=== PATIENT | male | born 1980 | race Caucasian/White ===

== ENCOUNTER 2016-08-28 01:00 | Inpatient (IN) | payer OTHER ==
--- NOTE | ~2016-08-28 | PN ---
Unit #: [id number] #: [id number] Patient: TIARA BEREGRON [id number] [facility] [address] [place] [address] [id number] I MR#: [id number] NAME: TIARA BERGERON ROOM: P171 Age: 35 Sex: M Admission Date: 08/28/2016 : 1980 Attending Physician: Kiel Freedman M.D. Admitting Physician: Kiel Freedman M.D. Primary Care Physician: Primary Care Physician Kim AYERS PROGRESS NOTES DATE 08/30/2016 DISCUSSION The patient is a bit less seclusive to room and seems a tad brighter today though he continues to endorse hopelessness and suicidal ideation. We continue current treatment and the patient is encouraged to continue his increased participation within the therapeutic milieu. Suicide precautions remain in place. Dictated by... Kiel Freedman M.D. CB/obey TD: 08/30/2016 15:30 JOB #: [id number] [facility] PROGRESS NOTES Page 1 of 1 X Kiel Freedman MD PROGRESS NOTE
--- NOTE | ~2016-08-28 | PA ---
Unit #: [id number] #: [id number] Patient: TIARA BERGERON [id number] [place] [address] [id number] MR#: [id number] NAME: TIARA BERGERON ROOM: P171 Age: 35 Sex: M Admission Date: 08/28/2016 : 1980 Date of Assessment: 08/28/2016 Attending Physician: Kiel Freedman M.D. Admitting Physician: Kiel Freedman M.D. Primary Care Physician: Primary Care Physician No PSYCHIATRIC ASSESSMENT IDENTIFYING INFORMATION The patient is a 35-year-old white male admitted to the [address] [place] [address] unit after presenting to this facility voicing positive suicidal or homicidal ideation. CHIEF COMPLAINT None give. INFORMANT Chart, patient could not be aroused for interview. HISTORY OF PRESENT ILLNESS The patient is a 35-year-old white male well-known to this physician. He was last discharged from this facility in November of 2015. The patient has a history of methamphetamine abuse as well as Intermittent explosive disorder, antisocial personality disorder. He states that he has been compliant with his prescribed psychotropic medications which include Zoloft, Seroquel, Depakote and lisinopril. The patient reports that he found his girlfriend having sex with another man recently and this has caused increasing abuse of methamphetamine. The patient has not filled his medications of Seroquel, Zoloft and Depakote since March. The patient is sleeping soundly. Interviews attempted today having received a p.r.n. dose of Thorazine shortly after admission to the unit. PAST PSYCHIATRIC HISTORY Reviewed no changes. PAST MEDICAL HISTORY Reviewed no changes. MEDICATIONS 1. Zoloft 2. Seroquel 3. Depakote 4. Lisinopril ALLERGIES Codeine FAMILY HISTORY Reviewed no changes. Unit #: [id number] #: [id number] Patient: TIARA BERGERON SOCIAL HISTORY Reviewed no changes. MEDICATION HISTORY At this time reveals the patient to be soundly sleeping male appearing his stated age. She is in no apparent physical distress at the time of examination. He is awake, alert, oriented in all spheres. His mood and affect cannot be assessed secondary to his somnolence. ASSETES AND LIABILITIES ASSETS: to be assessed. LIABILITIES: Sociopathy. DIAGNOSTIC IMPRESSION Methamphetamine use disorder. Mood disorder unspecified. Hypertension. TREATMENT PLAN The patient remains hospitalized for safety and stabilization. We will restart previous prescribed medications and consider addition of mood stabilization medications such as Tegretol given the patient's history of intermittent explosive disorder. ESTIMATED LENGTH OF STAY Five to seven days. Dictated by... Kiel Freedman M.D. ALLISON/latrell TD: 08/29/2016 22:50 JOB #: [id number] PSYCHIATRIC ASSESSMENT Page 1 of 1 X Kiel Freedman MD X PSYCHIATRIC ASSESSMENT
--- NOTE | ~2016-08-28 | HP ---
Unit #: [id number] #: [id number] Patient: TIARA BERGERON [id number] [place] [address] [id number] MR#: [id number] NAME: TIARA BERGERON ROOM: P171 Age: 35 Sex: M Admission Date: 08/28/2016 : 1980 Attending Physician: Kiel Freedman M.D. Admitting Physician: Kiel Freedman M.D. Primary Care Physician: Primary Care Physician No HISTORY AND PHYSICAL HISTORY OF PRESENT ILLNESS The patient is a 35-year-old male, who comes in today, stating that he is homicidal, no one in particular, states that he walked in and observed his soon-to-be ex- having sex with someone while she was with his child. PAST MEDICAL HISTORY Significant for depression. PAST SURGICAL HISTORY None. ALLERGIES Codeine. SOCIAL HISTORY Negative. FAMILY HISTORY Noncontributory. REVIEW OF SYSTEMS CONSTITUTIONAL: No fever or chills. HEENT: Denies any sore throat, ear pain or runny nose. CARDIOVASCULAR: Denies chest pain, irregular heart rhythm or palpitations. CHEST: Denies shortness of breath or cough. No hemoptysis. GASTROINTESTINAL: Denies nausea, vomiting, diarrhea or chronic constipation. ENDOCRINE: Denies history of increased thirst or urination. No recent significant weight loss or gain. GENITOURINARY: Denies dysuria, frequency, or hematuria. SKIN: Denies any rashes. HEMATOLOGIC: Denies history of increased bleeding or bruising. MUSCULOSKELETAL: Denies any hot, swollen joints. No generalized muscle pain. NEUROLOGIC: Denies problems with vision or speech. No frequent, severe headaches. No numbness, tingling or weakness in any extremities. Denies loss of bladder or bowel control. CURRENT MEDICATIONS 1. Zoloft 150 mg daily 2. Seroquel 400 mg p.o. q.8h 3. Depakote ER 500 mg p.o. twice daily Unit #: [id number] #: [id number] Patient: TIARA BERGERON 4. Lisinopril 100 mg p.o. daily PHYSICAL EXAMINATION GENERAL: Currently lying in bed after having received an injection. VITAL SIGNS: Blood pressure 163/114, heart rate 112, respirations 20. HEIGHT: 5 feet 9 inches. WEIGHT: 190 pounds. SKIN: Warm and dry without rash or lesion. Tattoo to the left shoulder, redness to bilateral knees. HEENT: Normocephalic. TMs not viewed. Oral and nasal passages clear. Conjunctivae clear. PERRLA. EOMs intact. NECK: Supple without lymphadenopathy or thyromegaly. HEART: Regular rate and rhythm without murmur. LUNGS: Clear. ABDOMEN: Soft, nontender. : Not done. EXTREMITIES: No evidence of cyanosis, clubbing or edema. Moves all without focal deficit. NEUROLOGICAL: Grossly within normal limits. Cranial Nerves: II: Visual stevenson are intact. III, IV AND : Extraocular movements are intact. Pupils are equal, round and reactive to light. V: Facial sensation is grossly normal. VII: Facial movements and expression are normal. VIII: Auditory acuity grossly intact. IX, X: Uvula is midline. Phonation is normal. XI: Patient shrugs shoulders and turns head normally. XII: Tongue protrudes in the midline. Sensory and Motor Function: Sensory and motor sensation is grossly normal. Motor: moves all extremities well. Coordination: Gait is normal. Deep Tendon Reflexes: Intact. IMPRESSION Psychiatric admission. RECOMMENDATIONS Psychiatric, per psychiatrist. MEDICAL No contraindications to participating in facility's activities. MEDICAL PROGNOSIS Good. Dictated by... Alida Tim/kate TD: 08/29/2016 12:11 JOB #: [id number] Unit #: [id number] #: [id number] Patient: TIARA BERGERON HISTORY AND PHYSICAL Page 1 of 1 X Blanca Tubbs APR X HISTORY AND PHYSICAL
--- NOTE | ~2016-08-28 | DS ---
Unit #: [id number] #: [id number] Patient: TIARA BERGERON [id number] [facility] [address] [place] [address] [id number] I MR#: [id number] NAME: TIARA BERGERON ROOM: P171 Age: 35 Sex: M Admission Date: 08/28/2016 : 1980 Discharge Date: 09/01/2016 Attending Physician: Kiel Freedman M.D. Primary Care Physician: Kim Primary Care Physician DISCHARGE SUMMARY REASON FOR ADMISSION The patient is a 35-year-old white male admitted to the [facility] unit with recent abuse of methamphetamine, as well as homicidal and suicidal ideation. HOSPITAL COURSE The patient was admitted to the [facility] unit and placed on suicide precautions. He was restarted on the previously prescribed medications including Depakote, Zestril, and Zoloft. He was more active within the therapeutic milieu and less unpleasant during this stay in the hospital and seemed more insightful regarding the deleterious effect that methamphetamine was having on his mood symptom. By 09/01/2016 the patient was in bright spirits and requested discharge; it was so ordered. FINAL DIAGNOSES 1. Bipolar disorder, more recent episode depressed. 2. Methamphetamine use disorder. 3. Hypertension. DISPOSITION ON DISCHARGE The patient was discharged on the following medications: 1. Depakote ER 500 mg twice daily for mood stabilization. 2. Zoloft 150 mg daily for depression. 3. Seroquel 400 mg at bedtime for mood stabilization. 4. Zestril 10 mg once daily for hypertension. DIET AND ACTIVITY No dietary or physical restrictions placed on patient after discharge. FOLLOWUP Followup will take place through the auspices of community health resources. PROGNOSIS Considered fair. Dictated by... Kiel Freedman M.D. CB/ts Unit #: [id number] #: [id number] Patient: TIARA BERGERON TD: 09/02/2016 09:53 JOB #: [id number] DISCHARGE SUMMARY Page 1 of 1 X Kiel Freedman MD X DISCHARGE SUMMARY
--- NOTE | ~2016-08-28 | PN ---
Unit #: [id number] #: [id number] Patient: TIARA BERGERON [id number] [facility] [address] [place] [address] [id number] I MR#: [id number] NAME: TIARA BERGERON ROOM: P171 Age: 35 Sex: M Admission Date: 08/28/2016 : 1980 Attending Physician: Kiel Freedman M.D. Admitting Physician: Kiel Freedman M.D. Primary Care Physician: Primary Care Physician Kim AYERS PROGRESS NOTES DATE 08/29/2016 DISCUSSION The patient is abed today. He is calmer today but reports that secondary to a recent methamphetamine binge he had felt as though he was "becoming possessed." He continues to endorse sad mood and complains of increased anxiety and tearfulness. He reports that he is in midst of a divorce at this point and this has been difficult for him. Dictated by... Kiel Freedman M.D. CB/latrell TD: 08/30/2016 03:12 JOB #: [id number] [facility] PROGRESS NOTES Page 1 of 1 X Kiel Freedman MD PROGRESS NOTE
--- NOTE | ~2016-08-28 | PN ---
Unit #: [id number] #: [id number] Patient: TIARA BERGERON [id number] [facility] [address] [place] [address] [id number] MR#: [id number] NAME: TIARA BERGERON ROOM: P171 Age: 35 Sex: M Admission Date: 08/28/2016 : 1980 Attending Physician: Kiel Freedman M.D. Admitting Physician: Kiel Freedman M.D. Primary Care Physician: Primary Care Physician Kim AYERS PROGRESS NOTES DATE 08/31/2016 DISCUSSION The patient seems more dysphoric and sullen today and is continuing to endorse positive suicidal and vague homicidal ideation. I have encouraged him to increase his participation within the therapeutic milieu. We continue current aggressive pharmacotherapy. Dictated by... Kiel Freedman M.D. CB/luciano TD: 08/31/2016 14:41 JOB #: [id number] [facility] PRO[facility] Page 1 of 1 X Kiel Freedman MD X PROGRESS NOTE
[2016-08-29 10:00] LABS: BASOPHIL# 0.1 X10e3 (0-0.3); BASOPHIL% 0.7 % (0-2.5); EOSINOPHIL# 0.2 X10e3 (0-0.7); EOSINOPHIL% 2.9 % (0.0-7.0); HEMATOCRIT 48.2 % (38.0-50.0); HEMOGLOBIN 15.8 gm/dL (13.0-16.0); LYMPHOCYTE# 1.8 X10e3 (1.0-3.5); LYMPHOCYTE% 22.7 % (17.0-45.0); MEAN CELL VOLUME 88.1 FL (83-96); MEAN CORPUSCULAR HEMOGLOBIN 28.8 PG (28-34); MEAN CORPUSCULAR HGB CONC 32.7 g/dL (30-36); MEAN PLATELET VOLUME 8.4 FL (6.5-11.5); MONOCYTE# 0.7 X10e3 (0-1.0); MONOCYTE% 9.4 % (3.0-12.0); NEUTROPHIL# 5.1 X10e3 (1.5-7.1); NEUTROPHIL% 64.3 % (40-75); PLATELET COUNT 242 X10e3 (140-420); RED BLOOD COUNT 5.47 X10e (3.90-5.60); RED CELL DISTRIBUTION WIDTH 14.9 % (11.0-15.5); WHITE BLOOD COUNT 7.9 X10e3 (4.0-10.5)
[2016-08-29 10:28] LABS: DIFF IND NO
[2016-08-29 10:42] LABS: ALBUMIN SERUM 3.8 g/dL (3.5-5.0); BILIRUBIN,TOTAL 0.6 mg/dL (0.2-2.0); GLOM FILT RATE Estimated 96.4 mL/min (>60); POTASSIUM 4.2 mmol/L (3.5-5.1); PROTEIN TOTAL SERUM 6.1 g/dL (6.0-8.3)
== END 2016-09-01 16:04 | DRG 885 ==
LOC: P1E 06:14
PROVIDERS: Specialist
DX: F31.9 Bipolar disorder, unspecified (principal); R45.851 Suicidal ideations; R45.850 Homicidal ideations; F15.10 Other stimulant abuse, uncomplicated; F39 Unspecified mood [affective] disorder; I10 Essential (primary) hypertension; Z88.5 Allergy status to narcotic agent
CPT/HCPCS: 80053; 80164; 82140; 85025; J3230